=== PATIENT | male | born 1995 | race Two or more races ===

== ENCOUNTER 2016-04-27 01:21 | Emergency (ER) | payer OTHER ==
[2016-04-27 01:48] LABS: ABSOLUTE NEUTROPHIL COUNT 5.7 K/mm3 (1.8-7.7); BASO % 0.3 % (0.2-1.0); EOS # 0.1 (0.0-0.5); EOS % 1.3 % (0.9-2.9); HEMATOCRIT 46.3 % (37.0-47.0); HEMOGLOBIN 16.1 gm/l (12.0-16.0); IMM NEUT% 0.2 % (0-1); LYMPH # 2.3 (1.0-4.8); LYMPH % 26.6 % (15-45); MEAN CELL VOLUME 83.7 fl (81.0-99.0); MEAN CORPUSCULAR HEMOGLOBIN 29.1 pg (27.0-31.0); MEAN CORPUSCULAR HGB CONC 34.8 g/dl (33.0-37.0); MEAN PLATELET VOLUME 10.5 fl (7.4-10.4); MONO # 0.5 (0.0-0.8); MONO % 6.2 % (4-12); NEUT % 65.4 % (43-75); PLATELET COUNT 193 K/mm3 (130-400); RED CELL DISTRIBUTION WIDTH 12.4 % (11.5-14.5)
[2016-04-27 02:24] LABS: ALB/GLOB RATIO 1.5 (>1.0); ALBUMIN 4.6 gm/dL (3.5-5.7); CALCIUM 9.7 mg/dL (8.6-10.3)
[2016-04-27] MEDS ORDERED: MAALOX/LIDO2%VISC/SIMETHICONE 40 ML BOT ONE (02:50)
[2016-04-27] MEDS ORDERED: PANTOPRAZOLE 40 MG TABLET DR PO ONE (03:42)
--- NOTE | 2016-04-27 08:32 | RAD ---
History: Chest pain. Comparison: None. Technique: 2 views Findings: The soft tissue and bony structures are unremarkable. The heart size is appropriate. No infiltrate, effusion or pneumothorax is observed. The hilar and mediastinal structures are normal. Impression: 1. A negative 2 view chest
--- NOTE | 2016-04-27 09:02 | US ---
ABDOMINAL-LIMITED History: Elevated liver function tests with chest pain. Findings: Gallbladder: The gallbladder is not distended. No evidence of cholelithiasis, gallbladder wall thickening, or beatriz-cholecystic fluid is seen. Biliary tree: The common hepatic duct measures 1.8 millimeters adjacent to the hepatic artery. Liver: The liver is relatively homogeneous though appears to be of diffusely increased echogenicity. There is an area of decreased echogenicity adjacent to the gallbladder fossa. No evidence of intrahepatic biliary dilatation is observed. Impression: 1. No evidence of cholelithiasis or biliary dilatation. 2. Diffuse increased hepatic echogenicity, most commonly associated with findings of fatty infiltration. An area of suspected focal fatty sparing seen adjacent to the gallbladder fossa. The findings were called to the emergency room at 0452 hours, 04/27/2016, by [facility] radi[facility].
== END 2016-04-27 05:15 | disposition home or self-care (01) ==
LOC: ED 01:21 → EDSEX 01:21 → ED 05:15
DX: K21.9 Gastro-esophageal reflux disease without esophagitis (principal); R07.9 Chest pain, unspecified; R79.89 Other specified abnormal findings of blood chemistry; J45.909 Unspecified asthma, uncomplicated
CPT/HCPCS: 85025; 80053; 84484; 71020; 76705; 99284 ×2; 93005; A9270 ×2